=== PATIENT | female | born 2000 | race Caucasian/White ===

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

== ENCOUNTER 2023-06-13 12:00 | Inpatient (IN) ==
[2023-06-13] MEDS ORDERED: Buffered Lidocaine 1% SYRIN 1 ml INTRADERM ONE (14:41)
[2023-06-13] MEDS ORDERED: Lidocaine 1% VIAL 10 MG/ML 30 ML VIAL INJ PRN (14:41)
[2023-06-13] MEDS ORDERED: Lactated Ringers 1000 ml BAG 1,000 ML IV ONE (14:41)
[2023-06-13] MEDS ORDERED: Lactated Ringers 1000 ml BAG 1,000 ML IV SCH ×2 (15:00→21:00)
[2023-06-13] MEDS ORDERED: OBEPIDURAL (200 ML) 0 ML EPIDURAL ONE (15:47)
[2023-06-13] MEDS ORDERED: Lidocaine 1.5% EPI 1:200,000 30 ML SDV ONE (15:48)
[2023-06-13 15:51] LABS: ABS Lymphocytes 2.5 10^3/uL (1.0-4.8); ABS Monocytes 0.8 10^3/uL (0.0-0.9); ABS Nucleated RBC 0.01 10^3/ul; Eosinophil % 0.2 %; Hematocrit 36.7 % (35-45); Hemoglobin 12.4 g/dL (11.5-14.3); Lymphocyte % 16.4 %; Mean Corpuscular Hemoglobin 28.8 pg (27-33); Mean Corpuscular Hgb Conc 33.7 g/dL (31-36); Mean Corpuscular Volume 85.4 fL (80-97); Nucleated Red Blood Cells % 0.1 %/100WBC (0.0-0.8); Platelet Count 300 10^3/uL (150-450); Red Blood Count 4.29 10^6/uL (3.63-4.92); Red Cell Distribution Width 13.4 % (12-17); White Blood Count 15.4 10^3/uL (3.8-11.8)
[2023-06-13] MEDS ORDERED: Ondansetron 4 mg VIAL 2 MG/ML 2 ml VIAL IV PRN (16:08)
[2023-06-13] MEDS ORDERED: Oxytocin in LR 20,000 MILLI.UNIT/1,000 ML BAG IV ONE (16:32)
[2023-06-13] MEDS ORDERED: Lidocaine 2% JELLY 6 ML Topical TOPICAL ONE (16:39)
[2023-06-13] MEDS ORDERED: Glycerin ADULT 2.4 gm SUPP PR PRN (20:17)
[2023-06-13] MEDS ORDERED: Witch Hazel PAD JAR TOPICAL PRN (20:17)
[2023-06-13] MEDS ORDERED: Oxytocin in LR 20,000 MILLI.UNIT/1,000 ML BAG IV SCH (20:20)
[2023-06-13] MEDS: Dibucaine 1% OINT 28.35 GM TUBE PR PRN (21:07)
[2023-06-14 08:14] LABS: ABS Lymphocytes 3.3 10^3/uL (1.0-4.8); ABS Monocytes 0.9 10^3/uL (0.0-0.9); ABS Neutrophils 14.4 10^3/uL (1.5-7.6); Eosinophil % 0.2 %; Hematocrit 32.8 % (35-45); Lymphocyte % 17.8 %; Mean Corpuscular Hemoglobin 29.1 pg (27-33); Mean Corpuscular Hgb Conc 33.5 g/dL (31-36); Mean Platelet Volume 9.3 fL (7.5-11.2); Platelet Count 288 10^3/uL (150-450); Red Blood Count 3.77 10^6/uL (3.63-4.92); Red Cell Distribution Width 13.2 % (12-17); White Blood Count 18.7 10^3/uL (3.8-11.8)
[2023-06-14] MEDS: Dibucaine 1% OINT 28.35 GM TUBE PR PRN (21:30)
[2023-06-15 07:57] VITALS: BP 109/73
[2023-06-15 13:45] LABS: Coagulation F VIII Activity 319 % (55 - 200); von Willebrand Factor Activity 270 % (55 - 200)
== END 2023-06-15 13:50 | disposition home or self-care (01) | DRG 560 ==
LOC: EDSEX → MCHOBOUT 12:00 → MCHOB 14:34 → MERGE 14:34 → MCHOB 06-14 00:22
PROVIDERS: ADMIT Advanced Practice Midwife; ATTEND Midwife